=== PATIENT | female | born 1950 | race Caucasian/White ===

== ENCOUNTER 2017-07-14 13:00 | Outpatient (RCR) | payer MEDICARE, OTHER | END 2017-09-14 | disposition home or self-care (01) | LOC: MKS.ESL.PT | DX: S83.241D Other tear of medial meniscus, current injury, right knee, subsequent encounter (principal); Z92.21 Personal history of antineoplastic chemotherapy; Z85.3 Personal history of malignant neoplasm of breast | CPT/HCPCS: G8978-GP; G8979-GP ==

== ENCOUNTER → 2020-06-20 | Outpatient (CLI) | payer MEDICARE, OTHER | LOC: MC.RAD 06-06 14:45 | DX: Z12.31 Encounter for screening mammogram for malignant neoplasm of breast (principal); C50.312 Malignant neoplasm of lower-inner quadrant of left female breast; Z98.890 Other specified postprocedural states; Z98.82 Breast implant status; Z90.12 Acquired absence of left breast and nipple ==

== ENCOUNTER 2023-07-03 18:25 | Emergency (ER) | payer MEDICARE, OTHER ==
[~2023-07-03] VITALS: Ht 175.3 cm; Wt 70.5 kg
[2023-07-03 18:35] VITALS: BP 115/71; PULSE 96; TEMP 98.1
== END 2023-07-03 19:00 | disposition left against medical advice (07) ==
LOC: COL.ER 18:25
DX: R42 Dizziness and giddiness (principal); R00.0 Tachycardia, unspecified; I48.91 Unspecified atrial fibrillation; Z79.82 Long term (current) use of aspirin